=== PATIENT | female | born 1995 | race Caucasian/White ===

== ENCOUNTER 2018-04-18 15:15 | Emergency (ER) | payer SELFPAY ==
[2018-04-18 16:53] LABS: ABS Basophils 0 10^3/ul (0-0.2); ABS Eosinophils 0.1 10^3/ul (0-0.6); ABS Lymphocytes 1.2 10^3/ul (1.0-4.8); ABS Monocytes 0.4 10^3/ul (0-0.8); ABS Neutrophils 2.9 10^3/ul (1.5-7.7); ABS Nucleated RBC 0 10^3/ul; Eosinophil % 2.5 % (0-6); Hematocrit 39 % (35-47); Hemoglobin 13.2 g/dl (12.0-16.0); Lymphocyte % 26.9 % (25-47); Mean Corpuscular HGB Conc 34 g/dl (31-36); Mean Corpuscular Hemoglobin 30 pg (27-31); Mean Corpuscular Volume 87 fL (80-97); Mean Platelet Volume 8.5 um3 (7.4-10.4); Nucleated Red Blood Cells % 0; Platelet Count 159 10^3/ul (150-450); Red Blood Count 4.44 10^6/ul (4.00-5.40); Red Cell Distribution Width 13 % (10.5-15); White Blood Count 4.6 10^3/ul (3.5-10.8)
[2018-04-18 17:19] LABS: EGFR Non-African American 123.9 (>60)
--- NOTE | 2018-04-18 18:07 | RAD ---
Indication: Approximate 8 weeks gestation based on clinical history. History of miscarriages. Past large blood clots today. Denies pain. Comparison: No relevant prior exams available on the [facility] [place] for comparison. Technique: Transabdominal pelvic ultrasound Report: 9.1 x 4.1 x 5.5 cm anteverted uterus. No intrauterine gestational sac visualized. 15.5 mm endometrium is heterogeneous in echotexture. No fluid evident within the endometrial cavity or endocervical canal. Physiologic small volume of free pelvic fluid. 3.2 x 2.0 x 1.9 cm RIGHT ovary with documented vascular flow is unremarkable. 2.8 x 2.2 x 1.9 cm LEFT ovary with documented vascular flow is unremarkable No visualized extra ovarian adnexal region lesions evident. IMPRESSION: No intrauterine gestational sac visualized. Despite absence of a suspicious adnexal region lesion ectopic is not excluded in absence of a documented IUP. Correlate with clinical assessment and consider close clinical, beta-HCG, and sonographic follow-up as deemed appropriate.
--- NOTE | 2018-04-18 18:38 | ED ---
- HPI Summary HPI Summary: Patient with history of a weeks complains of passing 2 episodes of blood clots today, bilateral diffuse intermittent abdominal cramping. Patient states it was bright red, profuse. Denies fever, cough, sore throat, N/V/D, CP , SOB, change in urine or BM. Medical history is none. No prior ultrasound or evaluation by GAMMA RAY OPERATOR. First appointment with GAMMA RAY OPERATOR next Tuesday. . - History of Current Complaint Chief Complaint: EDVaginalBleeding Stated Complaint: 8 WKS/BLEEDING/CRAMPING Time Seen by Provider: 04/18/18 16:55 Hx Obtained From: Patient Chief Complaint: Pain, Vaginal Bleeding Onset/Duration: Started Hours Ago Timing: Intermittent Severity: Moderate Current Severity: Moderate Pain Intensity: 4 Location of Pain: Diffuse Character: Cramping Aggravating Factors: Nothing Associated Signs and Symptoms: Positive: Vaginal Bleeding or Discharge - Assessment SAB: 0 IEA: 0 - Additional Pertinent History Maternal Blood Type and Rh: O Positive - Allergies/Home Medications Allergies/Adverse Reactions: Allergies Allergy/AdvReac Type Severity Reaction Status Date / Time No Known Allergies Allergy Verified 04/18/18 15:21 PMH/Surg Hx/FS Hx/Imm Hx Endocrine/Hematology History: Reports: Hx Thyroid Disease Denies: Hx Diabetes, Hx Anemia Cardiovascular History: Denies: Hx Cardiac Arrest GI History: Denies: Hx Jaundice History: Denies: Hx Dialysis Neurological History: Denies: Hx CVA Infectious Disease History: No Infectious Disease History: Denies: Traveled Outside the [place] in Last 30 Days - Social History Alcohol Use: None Substance Use Type: Reports: None Smoking Status (MU): Never Smoked Tobacco Type: Cigarettes Have You Smoked in the Last Year: No Review of Systems Constitutional: Negative Eyes: Negative ENT: Negative Cardiovascular: Negative Respiratory: Negative Positive: Abdominal Pain Positive: see HPI Musculoskeletal: Negative Skin: Negative Neurological: Negative Psychological: Normal All Other Systems Reviewed And Are Negative: Yes Physical Exam - Summary Physical Exam Summary: Abdomen diffusely tender. - Physical Exam Triage Information Reviewed: Yes Vital Signs Reviewed: Yes Appearance: Positive: Well-Appearing Skin: Positive: Warm Head/Face: Positive: Normal Head/Face Inspection Eyes: Positive: Normal Neck: Positive: Supple Respiratory/Lung Sounds: Positive: Clear to Auscultation Cardiovascular: Positive: Normal Abdomen Description: Positive: Other: Pelvic Exam: External Exam Normal, No Cerv. Motion Tender, No Masses, Active Bleeding, Blood, Other - Blood clots present. Blood clot passing through OS. OS Not open. No lesions, masses, other abnormalities. Musculoskeletal: Positive: Normal Neurological: Positive: Normal Psychiatric: Positive: Normal AVPU Assessment: Alert - [place] Coma Scale Eye: 4 - Spontaneous Motor: 6 - Obeys Commands Verbal: 5 - Oriented Coma Scale Total: 15 Diagnostics - Vital Signs Vital Signs Temp Pulse Resp BP Pulse Ox 04/18/18 15:17 99.6 F 94 16 130/78 100 - Laboratory Lab Results: Lab Results 04/18/18 04/18/18 04/18/18 Range/Units 16:40 16:40 16:40 WBC 4.6 (3.5-10.8) 10^3/ul RBC 4.44 (4.00-5.40) 10^6/ul Hgb 13.2 (12.0-16.0) g/dl Hct 39 (35-47) % MCV 87 (80-97) fL MCH 30 (27-31) pg MCHC 34 (31-36) g/dl RDW 13 (10.5-15) % Plt Count 159 (150-450) 10^3/ul MPV 8.5 (7.4-10.4) um3 Neut % (Auto) 62.1 (38-83) % Lymph % (Auto) 26.9 (25-47) % Wetzel % (Auto) 8.0 H (0-7) % Eos % (Auto) 2.5 (0-6) % Baso % (Auto) 0.5 (0-2) % Absolute Neuts (auto) 2.9 (1.5-7.7) 10^3/ul Absolute Lymphs (auto) 1.2 (1.0-4.8) 10^3/ul Absolute Monos (auto) 0.4 (0-0.8) 10^3/ul Absolute Eos (auto) 0.1 (0-0.6) 10^3/ul Absolute Basos (auto) 0 (0-0.2) 10^3/ul Absolute Nucleated RBC 0 10^3/ul Nucleated RBC % 0 Sodium 140 (135-145) mmol/L Potassium 4.3 (3.5-5.0) mmol/L Chloride 106 (101-111) mmol/L Carbon Dioxide 26 (22-32) mmol/L Anion Gap 8 (2-11) mmol/L BUN 12 (6-24) mg/dL Creatinine 0.60 (0.51-0.95) mg/dL Est GFR ( Amer) 149.9 (>60) Est GFR (Non-Af Amer) 123.9 (>60) BUN/Creatinine Ratio 20.0 (8-20) Glucose 109 H (70-100) mg/dL Calcium 9.4 (8.6-10.3) mg/dL Total Bilirubin 0.50 (0.2-1.0) mg/dL AST 20 (13-39) U/L ALT 20 (7-52) U/L Alkaline Phosphatase 44 (34-104) U/L Total Protein 7.4 (6.4-8.9) g/dL Albumin 4.3 (3.2-5.2) g/dL Globulin 3.1 (2-4) g/dL Albumin/Globulin Ratio 1.4 (1-3) Beta HCG, Quant 2067.00 mIU/mL Blood Type O Positive Result Diagrams: 04/18/18 16:40 04/18/18 16:40 Lab Statement: Any lab studies that have been ordered have been reviewed, and results considered in the medical decision making process. - Ultrasound No standard instances Ultrasound Interpretation Completed By: Radiologist - No intrauterine . Non-definitive ectopic rule out. Close follow-up suggested. Re-Evaluation - Re-Evaluation 1 Re-Evaluation Time: 18:39 - patient refused Tylenol. Course/Dx - Course Course Of Treatment: Patient with history of a weeks complains of passing 2 episodes of blood clots today, bilateral diffuse intermittent abdominal cramping. Patient states it was bright red, profuse. Denies fever, cough, sore throat, N/V/D, CP, SOB, change in urine or BM. Medical history is none. No prior ultrasound or evaluation by GAMMA RAY OPERATOR. First appointment with OB/ [facility] next Tuesday. . Abdomen diffusely tender. Blood clots present in vaginal vault, and in cervical os. Cervical os nondilated. Other abnormalities noted. Vital signs within normal limits and stable. Labs unremarkable. Patient Opositive. Ultrasound non-definitive. No IUP noted, no adnexal mass noted. Recommend follow-up with GAMMA RAY OPERATOR in 48 hours for further evaluation and repeat hCG. Patient understands and approves the plan. - Diagnoses Provider Diagnoses: Threatened miscarriage in early Discharge - Sign-Out/Discharge Documenting (check all that apply): Discharge/Admit/Transfer - Discharge Plan Condition: Stable Disposition: HOME Patient Education Materials: Threatened Miscarriage (ED) Referrals: Jarred Mcadams MD [Primary Care Provider] - Additional Instructions: Call your GAMMA RAY OPERATOR to arrange for a follow-up in 48 hours for repeat hCG and further evaluation. Return to the ED for any new or worsening symptoms - Billing Disposition and Condition Condition: STABLE Disposition: Home
[2018-04-18 19:45] VITALS: BP 122/70
== END 2018-04-18 19:35 | disposition home or self-care (01) ==
LOC: ED 15:15
DX: O20.0 Threatened abortion (principal); Z3A.08 8 weeks gestation of pregnancy
CPT/HCPCS: 36415; 76801; 80053; 84702; 85025; 86900; 86901; 87480; 87491; 87510; 87591; 87660; 87661; 99282

== ENCOUNTER 2019-08-05 22:15 | Emergency (ER) | payer OTHER ==
[2019-08-05] MEDS ORDERED: Ondansetron INJ* 2 MG/ML VIAL IV ONE (23:30)
--- NOTE | 2019-08-05 23:39 | ED ---
GI/ HPI - HPI Summary HPI Summary: Patient is a 24 y/o F presenting to [facility] with complaints of abdominal pain and N/V/D that onset 08/05/19 in the afternoon. Diarrhea is characterized as watery. No sick contacts noted. She denies PMHx, daily medications. LNMP was ten months ago, patient recently had a baby on June 12, 2019. She had a IUD placed recently. On triage, pain is rated 10/10, nothing is noted to aggravate/ alleviate Sx. Home medications and allergies are reviewed. - History of Current Complaint Chief Complaint: EDAbdPain Time Seen by Provider: 08/05/19 23:27 Stated Complaint: VOMITING PER PT Hx Obtained From: Patient Onset/Duration: Started Hours Ago, Still Present Timing: Constant, Lasting Hours Current Severity: Severe Pain Intensity: 10 Associated Signs and Symptoms: Positive: Nausea, Vomiting, Diarrhea, Abdominal Pain Aggravating Factor(s): Nothing Alleviating Factor(s): Nothing - Allergy/Home Medications Allergies/Adverse Reactions: Allergies Allergy/AdvReac Type Severity Reaction Status Date / Time No Known Allergies Allergy Verified 06/12/19 10:06 PMH/Surg Hx/FS Hx/Imm Hx Endocrine/Hematology History: Reports: Hx Thyroid Disease Denies: Hx Diabetes, Hx Anemia Cardiovascular History: Denies: Hx Cardiac Arrest, Hx Hypertension Respiratory History: Denies: Hx Asthma GI History: Denies: Hx Jaundice History: Denies: Hx Dialysis, Hx Kidney Infection, Other Problems/Disorders Neurological History: Denies: Hx CVA Psychiatric History: Denies: Hx Anxiety, Hx Depression, Other Psychiatric Issues/Disorders Infectious Disease History: No Infectious Disease History: Denies: Traveled Outside the [place] in Last 30 Days - Family History Known Family History: Negative: Cardiac Disease, Hypertension, Diabetes - Social History Alcohol Use: None Substance Use Type: Reports: Marijuana Smoking Status (MU): Never Smoked Tobacco Type: Cigarettes Have You Smoked in the Last Year: No Review of Systems Negative: Fever - on vitals, temp is 98.3 F Positive: Abdominal Pain, Vomiting, Diarrhea, Nausea All Other Systems Reviewed And Are Negative: Yes Physical Exam - Summary Physical Exam Summary: Appearance: Well-appearing, Well-nourished, lying in bed Skin: Warm, dry, no obvious rash Eyes: sclera anicteric, no conjunctival pallor ENT: mucous membranes moist, pharynx appears normal Neck: Supple, nontender Respiratory: Clear to auscultation, no signs of respiratory distress Cardiovascular: Normal S1, S2. No murmurs. Normal distal pulses in tibial and radial bilaterally. Abdomen: Soft, nontender, normal active bowel sounds present Musculoskeletal: Normal, Strength/ROM Intact Neurological: A&Ox3, awake and alert, mentation is normal, speech is fluent and appropriate Psychiatric: affect is normal, does not appear anxious or depressed Triage Information Reviewed: Yes Vital Signs On Initial Exam: Initial Vitals Temp Pulse Resp BP Pulse Ox 98.3 F 85 20 131/73 100 08/05/19 22:18 08/05/19 22:18 08/05/19 22:18 08/05/19 22:18 08/05/19 22:18 Vital Signs Reviewed: Yes Procedures - Sedation Patient Received Moderate/Deep Sedation with Procedure: No Diagnostics - Vital Signs Vital Signs Temp Pulse Resp BP Pulse Ox 08/05/19 22:18 98.3 F 85 20 131/73 100 - Laboratory Result Diagrams: 08/05/19 23:37 08/05/19 23:37 Lab Statement: Any lab studies that have been ordered have been reviewed, and results considered in the medical decision making process. GIGU Course/Dx - Course Course Of Treatment: Patient is a 24 y/o F presenting to [facility] with complaints of abdominal pain and N/V/D that onset 08/05/19 in the afternoon. Physical exam is unremarkable. Bloodwork was obtained and WNL with exception of MCV 79, absolute neuts 0.5, potassium 3.4, carbon dioxide 17, anion gap 14, glucose 128. During ED course, patient received Zofran 8 mg IV and NS with improvement of Sx. She was discharged to home with Zofran prescription and PCP follow up. - Diagnoses Provider Diagnoses: Gastroenteritis Discharge ED - Sign-Out/Discharge Documenting (check all that apply): Patient Departure - discharge - Discharge Plan Condition: Improved Disposition: HOME Prescriptions: Ondansetron ODT TAB* [Zofran 4 MG Odt TAB*] 8 mg PO Q6H PRN #12 tab.odt PRN Reason: Nausea Patient Education Materials: Gastroenteritis (ED) Referrals: Jarred Mcadams MD [Primary Care Provider] - 2 Days (if not better) - Billing Disposition and Condition Condition: IMPROVED Disposition: Home - Attestation Statements Document Initiated by Mone: Yes Documenting Scribe: MICHELE ALLEN Provider For Whom Mone is Documenting (Include Credential): LIO LEWIS MD Scribe Attestation: IMICHELE, scribed for LIO LEWIS MD on 08/06/19 at 0544. Scribe Documentation Reviewed: Yes Provider Attestation: The documentation as recorded by the MICHELE kilgore accurately reflects the service I personally performed and the decisions made by me, LIO LEWIS MD Status of Scribe Document: Viewed
[2019-08-05 23:43] LABS: ABS Lymphocytes 0.5 10^3/ul (1.0-4.8); ABS Monocytes 0.2 10^3/ul (0-0.8); ABS Neutrophils 3.8 10^3/ul (1.5-7.7); Eosinophil % 0.8 %; Hematocrit 37 % (35-47); Hemoglobin 12.2 g/dL (12.0-16.0); Lymphocyte % 10.8 %; Mean Corpuscular HGB Conc 33 g/dL (31-36); Mean Corpuscular Hemoglobin 27 pg (27-31); Mean Corpuscular Volume 79 fL (80-97); Mean Platelet Volume 8.4 fL (7.4-10.4); Platelet Count 177 10^3/uL (150-450); Red Blood Count 4.62 10^6 /uL (3.70-4.87); Red Cell Distribution Width 15 % (10-15); White Blood Count 4.5 10^3/uL (3.5-10.8)
[2019-08-05] MEDS: NS 0.9% 1000 ML** 2,000 ML IV ONE (23:46)
[2019-08-06 00:08] LABS: Anion Gap 14 mmol/L (2-11); BUN/Creatinine Ratio 17.9 (8-20); Blood Urea Nitrogen 12 mg/dL (6-24); CO2 Carbon Dioxide 17 mmol/L (22-32); Calcium 9.5 mg/dL (8.6-10.3); Chloride 106 mmol/L (101-111); EGFR African American 130.8 (>60); EGFR Non-African American 108.1 (>60); Glucose 128 mg/dL (70-100); Potassium 3.4 mmol/L (3.5-5.0); Sodium 137 mmol/L (135-145)
--- OUTSIDE RECORDS SUMMARY | 2019-08-06 00:13 | XMS REPORT | Continuity of Care Document ---
:1995 External Reference #:[id number] Author Name Carlos Ramirez MD Address [address] [place] [address] Problems Active Problems Provider Date IUD contraception Janay Hitchcock CNM Onset: 07/19/2019 Resolved Problems Multigravida Janay Hitchcock CNM Onset: 04/19/2019 Resolved: 06/12/2019 Social History Type Date Description Comments Sex Unknown Cigarette Use Former Cigarette Smoker quit 2014 ETOH Use Denies alcohol use Tobacco Use Start: Unknown End: Patient is a former smoker Unknown Recreational Drug Use Denies Drug Use Smoking Status Reviewed: 08/02/19 Patient is a former smoker Seat Belt/Car Seat Always uses seat belt LIANA: 06/14/2019 Estimated Date of Delivery Based on LMP LIANA: 02/06/2016 Estimated Date of Delivery Based on LMP Allergies, Adverse Reactions, Alerts Description No Known Drug Allergies Medications Active Medications SIG Qnty Indications Ordering Provider Date Metronidazole take one tab by 14tabs Carlos Ramirez MD 08/02/2019 500mg Tablets mouth twice a day for 7 days Paragard Intrauterine Placed Janay Hitchcock CNM 07/19/2019 Copper Contraceptive 07/19/2019 T380a T380a IUD Lexapro 1/2 tab PO x 6 30tabs Janay Hitchcock CNM 07/19/2019 10mg Tablets days then 1 by mouth every day PNV-Dha 1 by mouth Unknown 27-0.6-0.4-300mg every day Capsules History Medications Breast Pump double electric 1units Z39.1 Janay Hitchcock 05/05/2019 - breast pump for ROMEO 07/19/2019 Misc lactating mother Medications Administered in Office Medication SIG Qnty Indications Ordering Provider Date PT SCRN Tbco Id as Non User Carlos Ramirez MD 08/02/2019 Injection PT SCRN Tbco Id as Non User Pollo Martel M.D. 04/21/2018 Injection Immunizations CPT Code Status Date Vaccine Lot # [id number] Given 11/25/2015 Tetnus, Diptheria Toxoids And Acellular Pertussis, [id number] PT > 7Yrs Old Vital Signs Date Vital Result Comment 08/02/2019 11:11am BP Systolic 112 mmHg BP Diastolic 78 mmHg Height 65 inches 5'5" Weight 135.00 lb BMI (Body Mass Index) 22.5 kg/m2 4 Parity 2 07/19/2019 9:07am BP Systolic 106 mmHg BP Diastolic 64 mmHg Height 65 inches 5'5" Weight 138.00 lb BMI (Body Mass Index) 23.0 kg/m2 Last Menstrual Period [id number] Parity 2 Results Test Date Facility Test Result H/L Range Note Laboratory test 05/17/2019 [facility] Genital For SEE RESULT 1 [place] [address] GRP B Strep BELOW [phone] Only Laboratory test 03/22/2019 [facility] Glucose 1 HR 108 mg/dL Normal 70-160 [address] [place] [address] Post Prandial [phone] CBC With No Diff 03/22/2019 [facility] White Blood 6.6 10^3/uL Normal 3.5-10.8 [place] [address] Count [phone] Red Blood Count 3.79 10^6/uL Normal 3.70-4.87 Hemoglobin 10.9 g/dL Low 12.0-16.0 Hematocrit 33 % Low 35-47 Mean Corpuscular Volume 87 fL Normal 80-97 Mean Corpuscular Hemoglobin 29 pg Normal 27-31 Mean Corpuscular HGB Conc 33 g/dL Normal 31-36 Red Cell Distribution Width 13 % Normal 10.5-15 Platelet Count 173 10^3/uL Normal 150-450 Mean Platelet Volume 8.5 fL Normal 7.4-10.4 1 SEE RESULT BELOW Name: ODALYS HAMILTON : [address]: Paty Manrique [facility] Acct: [id number] Unit: [id number] AGE: 24 Location: [facility] Re05/17/19 SEX: F Status: REG REF SPEC: [id number] ELLIE: 05/17/19-[address]: Paty Manrique [facility] REQ: [id number] RECD: 05/17/19 STATUS: COMP _ SOURCE: CER/VAG/RE SPDESC: ORDERED: Grp B Strp Scrn COMMENTS: [id number] QUERIES: Is Patient Penicillin Allergic? N Is patient penicillin allergic and/or sensitivities needed? N Provider Requisition # C77#[id number]_ Procedure Result Reported Site Group B Strep Culture Screen Final 05/19/19- 1151 ML Group B Strep Screen Positive Organism 1 STREP GROUP B Susceptibility testing of penicillins and other B-lactams approved by FDA for treatment of Streptococcus pyogenes (Group A Strep) and Streptococcus agalactiae (Group B Strep) is not necessary for clinical purposes and need not be done routinely, since as with vancomycin, resistant strains have not been recognized. (CLSI R503-P57;p.66) Positive isolates will be saved for one week. Please call the Microbiology Laboratory if further susceptibility testing is needed. * [facility] - Main Lab . END OF REPORT DEPARTMENT OF PATHOLOGY, [address] [place] [address] Jung Ovalle M.D. Director [facility] # [id number] 2 [id number] Procedures Date Code Description Status 07/19/2019 67330 Insert Intrauterine Device Completed 06/12/2019 50242 Obstetric Care Routine Completed Medical Devices Description No Information Available Encounters Type Date Location Provider Dx Diagnosis Office Visit 08/02/2019 11:00a [facility] Carlos Ramirez MD N76.0 Acute vaginitis Assessments Date Code Description Provider 08/02/2019 N76.0 Acute vaginitis Carlos Ramirez MD 07/19/2019 Z39.2 Encounter for routine Janay Hitchcock CNM follow-up 07/19/2019 Z30.430 Encounter for insertion of intrauterine Janay Hitchcock CNM contraceptive device 07/19/2019 F41.9 Anxiety disorder, unspecified Janay Hitchcock CNM 07/19/2019 Z30.431 Encounter for routine checking of Janay Hitchcock CNM intrauterine contraceptive device 06/12/2019 Z37.0 Single live Janay Hitchcock CNM 06/12/2019 Z39.0 Encounter for care and examination of Janay Hitchcock CNM mother immediately after delivery 06/12/2019 O80 Encounter for full-term uncomplicated Janay Hitchcock ROMEO delivery 06/07/2019 Z34.83 Encounter for supervision of other normal Paty Manrique CNM , third trimester 05/31/2019 Z34.83 Encounter for supervision of other normal Silva Vasquez CNM , third trimester 05/17/2019 Z34.83 Encounter for suprvsn of normal Paty Manrique CNM , third trimester 05/03/2019 Z34.83 Encounter for suprvsn of normal Silva Vasquez CNM , third trimester 04/19/2019 Z34.83 Encounter for suprvsn of normal Gissell Davis CNM , third trimester 04/05/2019 Z34.83 Encounter for suprvsn of normal Paty Manrique CNM , third trimester 04/05/2019 Z23 Encounter for immunization Paty Manrique CNM 03/22/2019 Z36.9 Encounter for screening, Alexa Velasquez MD unspecified 03/22/2019 Z36.9 Encounter for screening, Laboratory unspecified 03/22/2019 Z34.03 Encntr for suprvsn of normal first preg, Gissell Davis CNM third trimester 03/05/2019 Z34.82 Encounter for suprvsn of normal Kimberly Guillaume CNM , second trimester Plan of Treatment Future Appointment(s):09/14/2019 9:00 am - Janay Hitchcock CNM at [facility] Functional Status Description No Information Available Mental Status Description No Information Available Referrals Description No Information Available
[2019-08-06 00:15] LABS: HCG Pregnancy < 0.60 mIU/mL
[2019-08-06 01:15] VITALS: BP 106/64
== END 2019-08-06 01:12 | disposition home or self-care (01) ==
LOC: ED 22:15
DX: K52.9 Noninfective gastroenteritis and colitis, unspecified (principal)
CPT/HCPCS: 36415; 80048; 84702; 85025; 96361; 96374; 99283; J2405